=== PATIENT | female | born 1940 | race Caucasian/White ===

== ENCOUNTER 2016-05-11 01:57 | Inpatient (IN) | payer MEDICARE ==
[2016-05-11] VITALS (17 sets, daily range): BP systolic 92–124; BP diastolic 51–71
[~2016-05-11] VITALS: Ht 171.4 cm; Wt 66.0 kg
[~2016-05-11 01:57] MED LIST: AMOX1TAB12 PO; HYOS0.1216 PO; LEVO5DRO OU; MULT-1029 PO; NITR100C44 PO; PHEN200T27 PO
[2016-05-11] MEDS ORDERED: DILTIAZEM 25 MG/5 ML INJ (CARDIZEM) VIAL ONE (02:07)
[2016-05-11] MEDS ORDERED: DILTIAZEM 25 MG/5 ML INJ (CARDIZEM) VIAL IVP ONE ×2 (02:15→02:45)
[2016-05-11] MEDS ORDERED: DILTIAZEM 100 MG/VIAL (CARDIZEM) ADD-VANTAGE IV ONE (02:15)
[2016-05-11] MEDS ORDERED: DILTIAZEM DRIP 100 MG in SODIUM CHLORIDE (ADD-VANTAGE) 100 ML IV SCH (02:15)
[2016-05-11] MEDS ORDERED: SODIUM CHLORIDE (ADD-VANTAGE) 100 ML IV ONE (02:15)
--- NOTE | 2016-05-11 02:18 | ED Cardiac General ---
History of Present Illness General Chief Complaint: Cardiac/General Problems Stated Complaint: IRREG HEART BEAT Nursing Triage Note: PT STATES LAST FEW DAYS NOT FEELING WELL. TONIGHT IRREG HEART RATE. Source: patient Exam Limitations: no limitations History of Present Illness Time seen by provider: 02:00 Initial Comments Here with report of acute onset of irregular heartbeat with palpitations tonight. She states that it was fine when she went to bed but woke her up about an hour and a half ago. She called her son, who is a physician, and they presented to the ER. She does admit that she's had some sort of illness over the last couple of days and states that she's had some congestion and not feeling well. She states that she has felt hot and cold. Timing/Duration: 1-3 hours Severity: moderate Location: central Activities at Onset: none Prior CP/Workup: no prior chest pain NTG SL BELT LOOP CUTTER: No ASA po BELT LOOP CUTTER: No Associated Systoms: No Chest Pain, No Fever/Chills, No Nausea/Vomiting, No Shortness of Air, No Weakness Allergies and Home Medications Allergies Coded Allergies: No Known Drug Allergies (Unverified , 08/01/14) Home Medications Amox Tr/Potassium Clavulanate 1 Tab Tablet 1 TAB PO BID (Reported) Hyoscyamine Sulfate 0.125 Mg Tab #30 1-2 EACH PO Q4HR PRN MAY TAKE 1 OR 2 TABS BY MOUTH EVERY 4 HRS NEEDED FOR BLADDER PAIN/SPASMS. LAST DOSE, 1 TABLET, GIVEN AT 11:40 AM 08/02/14. Prescribed by: ELISABET MOYER on 08/02/14 1236 Levobunolol Hcl 15 Ml Drops 1 DROP OU DAILY (Reported) Mu-Vits-Min Th/Lycopene/Lutein 1 Each Tablet 1 EACH PO DAILY (Reported) Nitrofurantoin/Nitrofuran Mac 100 Mg Capsule #14 100 MG PO BID TAKE ONE CAPSULE BY MOUTH TWICE A DAY. USE ALL OF THIS MEDICATION PRESCRIBED Prescribed by: ELISABET MOYER on 08/02/14 1113 Phenazopyridine Hcl 200 Mg Tablet #30 1 EACH PO TID PRN MAY TAKE ONE TABLET UP TO 3 TIMES A DAY NEEDED FOR BLADDER PAIN/SPASMS. LAST DOSE GIVEN AT 11:40 AM 08/02/14. Prescribed by: ELISABET MOYER on 08/02/14 1236 Review of Systems Constitutional: see HPINo chills, No fever EENTM: See HPI Nose CongestionNo Throat Pain Respiratory: Denies Cough, Denies Shortness of Air Cardiovascular: Irregular Heart Rate Palpitations Gastrointestinal: No Symptoms ReportedDenies Nausea, Denies Vomiting Genitourinary: No Symptoms Reported Musculoskeletal: no symptoms reported Skin: no symptoms reported Psychiatric/Neurological: No Symptoms Reported Endocrine: No Symptoms Reported All Other Systems Reviewed Negative Unless Noted: Yes Past Pdnzonw-Fekukm-Pejaxo Hx Patient Social History Alcohol Use: Denies Use Recreational Drug Use: No Smoking Status: Never a Smoker 2nd Hand Smoke Exposure: No Recent Foreign Travel: No Contact w/Someone Who Travel: No Recent Infectious Disease Expo: No Recent Hopitalizations: No Immunizations Up To Date Tetanus Booster (TDap): Unknown Date of Pneumonia Vaccine: Jan 05, 2015 Date of Influenza Vaccine: Jan 06, 2016 Seasonal Allergies Seasonal Allergies: No Surgeries HX Surgeries: Yes (PARTIAL LEFT HIP REPLACEMENT, LEFT WRIST FX) Respiratory Hx Respiratory Disorders: No Cardiovascular Hx Cardiac Disorders: Yes Cardiac Disorders: Atrial Fibrillation Neurological Hx Neurological Disorders: No Reproductive System : No Genitourinary Hx Genitourinary Disorders: Yes Genitourinary Disorders: Kidney Stones Gastrointestinal Hx Gastrointestinal Disorders: No Musculoskeletal Hx Musculoskeletal Disorders: No Endocrine Hx Endocrine Disorders: No HEENT HX ENT Disorders: Yes HEENT Disorders: Glaucoma Loss of Vision: Denies Hearing Impairment: Denies Cancer Hx Cancer: No Psychosocial Hx Psychiatric Problems: No Integumentary HX Skin/Integumentary Disorder: No Blood Transfusions Hx Blood Disorders: No Reviewed Nursing Assessment Reviewed/Agree w Nursing PMH: Yes Family Medical History Significant Family History: No Pertinent Family Hx Physical Exam Vital Signs Vital Sign - Last 12Hours 05/11/16 02:04 Temp 98.8 Pulse 150 Resp 20 B/P 127/114 Pulse Ox 95 O2 Delivery Room Air Capillary Refill : Less Than 3 Seconds General Appearance: No Apparent Distress WD/WN HEENT: PERRL/EOMI Pharynx Normal Neck: Non Tender Supple Respiratory: Lungs Clear Normal Breath Sounds Cardiovascular: No Murmur Irregularly Irregular Tachycardia Gastrointestinal: Non Tender Soft Extremity: Normal Range of Motion Non Tender No Calf Tenderness Neurologic/Psychiatric: Alert Oriented x3 No Motor/Sensory Deficits Skin: Normal Color Warm/Dry Progress/Results/Core Measures Results/Orders Lab Results Laboratory Tests Test 05/11/16 02:13 Range/Units Activated Partial Thromboplast Time 29 24-35 SEC Alanine Aminotransferase (ALT/SGPT) 204 H 0-55 U/L Albumin 4.0 3.2-4.5 G/DL Alkaline Phosphatase 312 H 40-136 U/L Amylase Level 73 25-125 U/L Anion Gap 15 H 5-14 MMOL/L Aspartate Amino Transf (AST/SGOT) 232 H 5-34 U/L BUN/Creatinine Ratio 22 Band Neutrophils 0 % Basophils # (Auto) 0.1 0.0-0.1 10^3/uL Basophils % (Manual) 0 % Basophils (%) (Auto) 0 0-10 % Blood Urea Nitrogen 16 7-18 MG/DL Calcium Level 8.4 L 8.5-10.1 MG/DL Carbon Dioxide Level 18 L 21-32 MMOL/L Chloride Level 107 98-107 MMOL/L Creatinine 0.73 0.60-1.30 MG/DL Crenated Cell MODERATE D-Dimer 1.00 H 0.00-0.49 UG/ML Eosinophils # (Auto) 0.0 0.0-0.3 10^3/uL Eosinophils % (Manual) 0 % Eosinophils (%) (Auto) 0 0-10 % Estimat Glomerular Filtration Rate > 60 Glucose Level 149 H 70-105 MG/DL Hematocrit 42 35-52 % Hemoglobin 13.7 11.5-16.0 G/DL INR Comment 1.0 0.8-1.4 Lipase 68 8-78 U/L Lymphocytes # (Auto) 17.6 H 1.0-4.0 X 10^3 Lymphocytes % (Manual) 68 % Lymphocytes (%) (Auto) 78 H 12-44 % Magnesium Level 1.8 1.8-2.4 MG/DL Mean Corpuscular Hemoglobin 31 25-34 PG Mean Corpuscular Hemoglobin Concent 33 32-36 G/DL Mean Corpuscular Volume 94 80-99 FL Mean Platelet Volume 10.5 H 7.4-10.4 FL Monocytes # (Auto) 1.4 H 0.0-1.0 X 10^3 Monocytes % (Manual) 3 % Monocytes (%) (Auto) 6 0-12 % Myoglobin 35.2 10.0-92.0 NG/ML Neutrophils # (Auto) 3.5 1.8-7.8 X 10^3 Neutrophils % (Manual) 17 % Neutrophils (%) (Auto) 16 L 42-75 % Platelet Count 152 130-400 10^3/uL Potassium Level 3.7 3.6-5.0 MMOL/L Prothrombin Time 12.7 12.2-14.7 SEC Reactive Lymphocytes 12 % Red Blood Count 4.42 4.35-5.85 10^6/uL Red Cell Distribution Width 13.9 10.0-14.5 % Sodium Level 140 135-145 MMOL/L TSH Jakin Testing 0.63 0.35-4.94 UIU/ML Total Bilirubin 0.3 0.1-1.0 MG/DL Total Protein 6.2 L 6.4-8.2 G/DL Toxic Granulation 1+ Troponin I < 0.30 <0.30 NG/ML White Blood Count 22.5 H 4.3-11.0 10^3/uL Micro Results Microbiology 05/11/16 Influenza Types A,B Antigen ([facility]) - Final, Complete My Orders Orders-BHAVYA TOM MD Diltiazem Injection (Cardizem Injection) (05/11/16 02:07) Sodium Chloride (Ad... W/Diltiazem Drip (05/11/16 02:15) Diltiazem Injection (Cardizem Injection) (05/11/16 02:15) Diltiazem Drip (Cardizem Drip) (05/11/16 02:15) Cbc With Automated Diff (05/11/16 02:16) Magnesium (05/11/16 02:16) Chest 1 View, Ap/Pa Only (05/11/16 02:16) Ekg Tracing (05/11/16 02:16) Cardiac Profile 1 (05/11/16 02:16) Comprehensive Metabolic Panel (05/11/16 02:16) Myoglobin Serum (05/11/16 02:16) Protime With Inr (05/11/16 02:16) Partial Thromboplastin Time (05/11/16 02:16) O2 (05/11/16 02:16) Monitor-Rhythm Ecg Trace Only (05/11/16 02:16) Lipid Panel (05/12/16 06:00) Aspirin Chewable Tablet (Baby Aspirin Ch (05/11/16 02:30) Saline Lock/Iv-Start (05/11/16 02:16) Fibrin Degradation Products (05/11/16 02:16) Sodium Chloride (Add-[place]) (Ns (Add-V (05/11/16 02:15) Thyroid Analyzer (05/11/16 02:18) Ns Iv 500 Ml (Sodium Chloride 0.9%) (05/11/16 02:22) Manual Differential (05/11/16 02:13) Diltiazem Injection (Cardizem Injection) (05/11/16 02:45) Influenza A And B Antigens (05/11/16 02:44) Ct Abdomen/Pelvis W (05/11/16 02:54) Saline Lock/Iv-Start (05/11/16 02:55) Heparin Drip 85954 Unit/500ml (Heparin (05/11/16 02:55) Heparin (Bolus Per Protocol) (Heparin (B (05/11/16 02:55) Medications Given in ED Current Medications Medications Dose Ordered Sig/Juan F Route Start Time Stop Time Status Last Admin Dose Admin Aspirin 324 mg 324 mg ONCE ONCE PO 05/11/16 02:30 05/11/16 02:31 DC 05/11/16 02:21 324 MG Diltiazem HCl 10 mg ONCE ONCE IVP 05/11/16 02:15 05/11/16 02:17 DC 05/11/16 02:19 10 MG Diltiazem HCl 10 mg 10 mg ONCE ONCE IVP 05/11/16 02:45 05/11/16 02:46 DC 05/11/16 02:45 10 MG Heparin Sodium (Porcine) HEPARIN BOLUS ACS PROTOC... 0255 ONCE IV 05/11/16 02:55 05/11/16 02:57 DC 05/11/16 03:43 4,082 UNIT Heparin Sodium/ Dextrose 500 ml @ 0 mls/hr Q0M ONCE IV 05/11/16 02:55 05/11/16 02:57 DC 05/11/16 03:48 16 MLS/HR Sodium Chloride 500 ml @ 0 mls/hr Q0M ONCE IV 05/11/16 02:22 05/11/16 02:23 DC 05/11/16 02:29 0 MLS/HR Vital Signs/I&O Vital Sign - Last 12Hours 05/11/16 05/11/16 02:04 02:20 Temp 98.8 98.8 Pulse 150 150 Resp 20 20 B/P 127/114 127/114 Pulse Ox 95 95 O2 Delivery Room Air Blood Pressure Mean: 118 Progress Note : Progress Note Seen and evaluated. IV, labs, EKG and chest x-ray ordered. Cardizem 10 mg IV bolus. Cardizem drip at 15 mg per hour initiated. Aspirin 324 mg by mouth given. Normal saline 500 mL bolus ordered. Monitor patient. 0250: Patient has abnormal findings on labs including elevated white count with lymphocyte predominance and elevated liver enzymes and alkaline phosphatase with low calcium. This is all concerning for intra-abdominal pathology. This was discussed with the patient and family. CT abdomen and pelvis ordered. We will initiate heparin drip due to persistent atrial fibrillation. Second IV site established. Patient is influenza positive. Tamiflu initiated. Case discussed with Dr. PINEDA at 0342. He accepts patient for admission, inpatient status. Case discussed with Dr. Shine at 0353. He accepts patient in consult. He recommends one dose of digoxin 0.25 mg IV times one now due to heart rate variations. CT pending. Dr. PINEDA will follow-up on her results. ECG Initial ECG Impression Date: May 11, 2016 Initial ECG Impression Time: 02:06 Initial ECG Rate: 170 Initial ECG Rhythm: A Fib/Flutter Initial ECG Comparisson: No Previous ECG Available Comment Atrial fibrillation with rapid ventricular rate. Normal axis. No evidence of ST elevation [place]. Question of left ventricular hypertrophy. No previous available for comparison. Interpreted by me. Diagnostic Imaging Diagonstic Imaging: Xray Plain Films/CT/US/NM/MRI: chest Comments No acute findings Reviewed: Reviewed by Me Diagonstic Imaging: CT Plain Films/CT/US/NM/MRI: abdomen, pelvis Comments Examination is limited by motion artifact artifact from a left hip prosthesis. Nonspecific gallbladder wall thickening enhancement. No calcified gallstones or biliary dilation. Right upper quadrant ultrasound may be considered for further characterization as clinically indicated. Small amount of nonspecific pelvic free fluid. No evidence of bowel instruction, free air or acute appendicitis. Incidental findings of small hiatal hernia, splenomegaly, prominent pancreatic duct and moderate colonic stool suggestive of constipation. Reviewed: [facility], Reviewed by Me Departure Communication Time/Spoke to Admitting Phy: 03:42 Time/Spoke to Consulting Physi: 03:53 Impression Impression: Primary Impression: Atrial fibrillation with rapid ventricular response Additional Impressions: Influenza A Elevated liver enzymes Disposition: ADMITTED INPATIENT Condition: Stable Decision to Admit Reason: Admit from ER (General) Decision to Admit/Date: May 11, 2016 Time/Decision to Admit Time: 02:58 Departure-Patient Inst. Referrals: RAYNA GRUBBS MD (PCP) Primary Care Physician BHAVYA TOM MD May 11, 2016 02:18
[2016-05-11] MEDS ORDERED: NS IV 500 ML 500 ML IV ONE (02:22)
[2016-05-11 02:26] LABS: BASOPHILS # (AUTO) 0.1 10^3/uL (0.0-0.1); BASOPHILS % (AUTO) 0 % (0-10); EOSINOPHILS % (AUTO) 0 % (0-10); LYMPHOCYTES # (AUTO) 17.6 X 10^3 (1.0-4.0); LYMPHOCYTES % (AUTO) 78 % (12-44); MEAN CORPUSCULAR HEMOGLOBIN 31 PG (25-34); MEAN CORPUSCULAR HGB CONC 33 G/DL (32-36); MEAN CORPUSCULAR VOLUME 94 FL (80-99); MEAN PLATELET VOLUME 10.5 FL (7.4-10.4); MONOCYTES # (AUTO) 1.4 X 10^3 (0.0-1.0); MONOCYTES % (AUTO) 6 % (0-12); NEUTROPHILS # (AUTO) 3.5 X 10^3 (1.8-7.8); NEUTROPHILS % (AUTO) 16 % (42-75); PLATELET COUNT 152 10^3/uL (130-400); RED BLOOD COUNT 4.42 10^6/uL (4.35-5.85); RED CELL DISTRIBUTION WIDTH 13.9 % (10.0-14.5); WHITE BLOOD COUNT 22.5 10^3/uL (4.3-11.0)
[2016-05-11 02:29] LABS: PROTHROMBIN TIME PATIENT 12.7 SEC (12.2-14.7)
[2016-05-11] MEDS ORDERED: ASPIRIN 81 MG CHEW (CHILDREN'S ASA) PO ONE (02:30)
[2016-05-11 02:44] LABS: ALANINE AMINOTRANSFERASE 204 U/L (0-55); ANION GAP 15 MMOL/L (5-14); ASPARTATE AMINO TRANSFERASE 232 U/L (5-34); BILIRUBIN,TOTAL 0.3 MG/DL (0.1-1.0); BLOOD UREA NITROGEN 16 MG/DL (7-18); BUN/CREATININE RATIO 22; CALCIUM 8.4 MG/DL (8.5-10.1); CARBON DIOXIDE 18 MMOL/L (21-32); CHLORIDE 107 MMOL/L (98-107); CREATININE SERUM 0.73 MG/DL (0.60-1.30); GFR ESTIMATED > 60; GLUCOSE 149 MG/DL (70-105); MAGNESIUM 1.8 MG/DL (1.8-2.4); POTASSIUM 3.7 MMOL/L (3.6-5.0); SODIUM 140 MMOL/L (135-145); TOTAL PROTEIN 6.2 G/DL (6.4-8.2)
[2016-05-11] MEDS ORDERED: HEParin DRIP 25000 UNIT/500ML 500 ML IV ONE (02:55)
[2016-05-11] MEDS ORDERED: HEParin 1000 UNIT/ML (10ML VIAL) FOR BOLUS IV ONE (02:55)
[2016-05-11 02:56] LABS: BAND NEUTROPHILS 0 %; BASOPHILS % (MANUAL) 0 %; EOSINOPHILS % (MANUAL) 0 %; LYMPHOCYTES % (MANUAL) 68 %; NEUTROPHILS % (MANUAL) 17 %; REACTIVE LYMPHOCYTES 12 %
[2016-05-11 02:57] LABS: CRENATED RBC MODERATE
[2016-05-11 03:19] LABS: MYOGLOBIN SERUM 35.2 NG/ML (10.0-92.0)
[2016-05-11] MEDS ORDERED: NS 100 ML (IVPB) BAG IV ONE (03:30)
[2016-05-11] MEDS ORDERED: IOHEXOL 350 MG/ML 100 ML (OMNIPAQUE 350) VIAL IV ONE (03:30)
[2016-05-11 03:57] LABS: AMYLASE 73 U/L (25-125); LIPASE 68 U/L (8-78)
[2016-05-11] MEDS ORDERED: RX-OSELTAMIVIR 75 MG (TAMIFLU) BOX OF 10 PO STA (03:57)
[2016-05-11] MEDS ORDERED: DIGOXIN 0.25 MG/ML (LANOXIN) 2 ML AMP IV ONE (04:00)
[2016-05-11] MEDS: POTASSIUM CL 10MEQ/50ML IVPB 50 ML IV SCH ×2 (05:29→06:01)
[2016-05-11] MEDS: KCL 20 MEQ TAB (K-DUR) PO SCH ×2 (05:30→06:02)
[2016-05-11] MEDS: MAGNESIUM 1 GM/100 ML IVPB 100 ML IV SCH ×2 (05:30→06:01)
[2016-05-11] MEDS ORDERED: DILTIAZEM DRIP 100 MG/NS 100 ML IV SCH ×2 (06:15)
[2016-05-11] MEDS ORDERED: NS IV 1000 ML 1,000 ML IV SCH (06:15)
[2016-05-11] MEDS ORDERED: NITROGLYCERIN SUBLINGUAL 0.4 MG TAB (NITROSTAT) SL PRN (06:15)
[2016-05-11] MEDS ORDERED: CATHETER FLUSH 10 ML SYR IV PRN (06:15)
--- NOTE | 2016-05-11 07:03 | Diagnostic Imaging Report ---
Clinical indication: Patient states last few days not feeling well. Tonight with irregular heart rate. Exam: Portable chest x-ray upright view. Comparisons: None. Findings: Lungs/pleura: Suspected mild bibasilar atelectasis or scarring. Otherwise, lungs are clear. There is no pneumothorax. There is no pleural effusion. Mediastinum: Unremarkable. Pulmonary vasculature: Unremarkable. Heart: Upper limits of normal heart size for portable projection. Bones/extrathoracic soft tissue: Unremarkable. Impression: Suspected mild bibasilar atelectasis or scarring. Otherwise, there is no radiographic evidence of acute cardiopulmonary process. Dictated by: Dictated on workstation # [id number]
--- NOTE | 2016-05-11 08:03 | Diagnostic Imaging Report ---
PROCEDURE: CT abdomen and pelvis with contrast. TECHNIQUE: Multiple contiguous axial images were obtained through the abdomen and pelvis after administration of intravenous contrast. INDICATION: Generalized abdominal pain. COMPARISON: 07/25/14. FINDINGS: The lung bases are clear. Questionable gallbladder wall thickening is present versus normal enhancement. Consider ultrasound. No obvious cholelithiasis is seen. There is no intra-or extrahepatic biliary duct dilatation. The pancreatic duct is prominent without obvious mass or choledocholithiasis. Otherwise, solid organs and vascular structures are unremarkable. There was no free air. There is moderate constipation without obstruction. The course and caliber of the visualized small bowel is normal. There is trace free fluid in the cul-de-sac. No abscess identified. There is no free air. Osseous structures are age-appropriate. Both ureters and urinary bladder are unremarkable. IMPRESSION: 1. Constipation without obstruction. 2. Nonspecific gallbladder wall enhancement with slight thickening, probably normal variant. Consider ultrasound to exclude cholecystitis. 3. Likely benign prominent pancreatic duct without mass or obstructing lesion. 4. Nonspecific trace free fluid in the cul-de-sac without abscess. Dictated by: Dictated on workstation # [id number]
[2016-05-11 08:44] LABS: MYOGLOBIN SERUM 44.4 NG/ML (10.0-92.0)
[2016-05-11] MEDS ORDERED: DILTIAZEM 180 MG (CARDIZEM CD) CAP PO SCH (09:00)
[2016-05-11] MEDS ORDERED: OSELTAMIVIR 75 MG (TAMIFLU) BOX OF 10 PO SCH ×3 (09:00)
[2016-05-11] MEDS ORDERED: APIXABAN 5 MG (ELIQUIS) TABLET PO SCH (09:00)
[2016-05-11] MEDS ORDERED: ASPIRIN E.C. 325 MG (ECOTRIN) TABLET PO SCH ×2 (09:00→12:00)
--- NOTE | 2016-05-11 12:33 | Short Stay Summary-Hospitalist ---
HPI History of Present Illness: HPI/Chief Complaint The patient is a 75-year-old white female known to me for many years. She reports that she was awakened in the metrology manager hours with the sense of palpitations. She presented to the emergency room in the company of her son who is a physician and was found to be in atrial fibrillation with a rapid ventricular response. She apparently has not been in atrial fibrillation as a rule, however, her son reports that several years ago while they were on a family outing and a cruise in the [place] she fell and fractured her hip. She was confined to bed and the cabin for a couple of days until they reached port and was found to be in atrial fibrillation at that time. That resolved with hospitalization. Source: patient Exam Limitations: no limitations Date Seen 05/11/16 Attending Physician Jordin Pineda MD PCP Adele Esparza MD Referring Physician Date of Admission May 11, 2016 at 02:55 Home Medications & Allergies Home Medications Reviewed patient Home Medication Reconciliation Form Allergies Coded Allergies: No Known Drug Allergies (Unverified , 08/01/14) Past Jrmogoz-Odlqax-Bendeq Hx Patient Social History Alcohol Use: Denies Use Recreational Drug Use: No Smoking Status: Never a Smoker 2nd Hand Smoke Exposure: No Physical Abuse Screen: No Sexual Abuse: No Recent Foreign Travel: No Contact w/other who traveled: No Recent Hopitalizations: No Recent Infectious Disease Expo: No Immunizations Up To Date Tetanus Booster (TDap): Unknown Date of Pneumonia Vaccine: Jan 05, 2015 Date of Influenza Vaccine: Jan 09, 2016 Seasonal Allergies Seasonal Allergies: No Surgeries HX Surgeries: Yes (PARTIAL LEFT HIP REPLACEMENT, LEFT WRIST FX) Respiratory Hx Respiratory Disorders: No Cardiovascular Hx Cardiovascular Disorders: Yes Cardiac Disorders: Atrial Fibrillation Neurological Hx Neurological Disorders: No Reproductive System : No Genitourinary Hx Genitourinary Disorders: Yes Genitourinary Disorders: Kidney Stones Gastrointestinal Hx Gastrointestinal Disorders: No Musculoskeletal Hx Musculoskeletal Disorders: No Endocrine Hx Endocrine Disorders: No HEENT HX ENT Disorders: Yes HEENT Disorders: Glaucoma Loss of Vision: Denies Hearing Impairment: Denies Cancer Hx Cancer: No Psychosocial Hx Psychiatric Problems: No Integumentary HX Skin/Integumentary Disorder: No Blood Transfusions Hx Blood Disorders: No Reviewed Nursing Assessment Reviewed/Agree w Nursing PMH: Yes Family Medical History Significant Family History: No Pertinent Family Hx Review of Systems Constitutional: see HPI EENTM: no symptoms reported Cardiovascular: palpitations Gastrointestinal: no symptoms reported Genitourinary: no symptoms reported Musculoskeletal: no symptoms reported Skin: no symptoms reported Psychiatric/Neurological: No Symptoms Reported Physical Exam Physical Exam Vital Signs Capillary Refill : Less Than 3 Seconds General Appearance: Anxious Eyes: Bilateral Eye Normal Inspection HEENT: Normal ENT Inspection Neck: Normal Inspection Respiratory: Chest Non Tender Lungs Clear Normal Breath Sounds No Accessory Muscle Use No Respiratory Distress Cardiovascular: Regular Rate, Rhythm No Gallop No JVD No Murmur Gastrointestinal: Normal Bowel Sounds No Organomegaly No Pulsatile Mass Non Tender Soft Back: Normal Inspection No CVA Tenderness No Vertebral Tenderness Extremity: Normal Capillary Refill Normal Inspection Normal Range of Motion Non Tender No Calf Tenderness No Pedal Edema Neurologic/Psychiatric: Alert Oriented x3 No Motor/Sensory Deficits Normal Mood/Affect Skin: Normal Color Warm/Dry Lymphatic: No Adenopathy Results Results/Procedures Lab Short Stay Diagnosis Discharge Diagnosis-Short Stay Admission Diagnosis 1.atrial fibrillation with rapid ventricular response. 2.modest elevation of liver enzymes etiology unknown Final Discharge Diagnosis 1.atrial fibrillation with rapid ventricular response now controlled and in sinus rhythm. 2.modest elevation of liver enzymes etiology unknown Conclusion Plan Discharge with outpatient follow-up by Dr. Infante. I discussed the liver enzymes and a shoe with the patient's physician Dr. Adele Esparza and she will be seen early in the week following her discharge for repeat studies. There were no symptoms referable to the liver or gallbladder. Clinical Quality Measures AMI/AHF: ASA po Prior to arrival: No DVT/VTE Risk/Contraindication: Risk Factor Score Per Nursin RFS Level Per Nursing on Admit: 2=Moderate JORDIN PINEDA MD May 11, 2016 12:33
--- NOTE | 2016-05-11 12:44 | Consultation-Cardiology ---
HPI-Cardiology Cardiology Consultation: Date of Consultation 05/11/16 Date of Admission 05/10/16 Attending Physician Jordin Cooper MD Admitting Physician Adele Esparza MD Consulting Physician ABRAM JACOB MD, FACP, FACC, FSCAI, CCDS HPI: Chief Complaint: Palpitations 75 yo woman who felt palpitations consisting of rapid irreg heartbeat yesterday and came to the ER. The day before she came in she had chills and rigors and gen malaise. No syncope or chest pain or leg swelling Review of Systems-Cardiology Review of Systems Constitutional: malaise tiredness Eyes: No vision change Ears/Nose/Throat: No ear discharge, No nasal drainage, No recent hearing loss Respiratory: As described under HPI Cardiovascular: As described under HPI Gastrointestinal: No constipation, No diarrhea, No nausea, No vomiting Genitourinary: No dysuria, No hematuria, No urine frequency changes Musculoskeletal: joint pain (chronic) Skin: No rash, No ulcerations Psychiatric/Neurological: No focal weakness, No seizure, No syncope Hematologic: bleeding abnormalities All Other Systems Reviewed Negative Unless Noted: Yes MZZ-Wkybvz-Kcjdnz Hx Patient Social History Alcohol Use: Denies Use Recreational Drug Use: No Smoking Status: Never a Smoker 2nd Hand Smoke Exposure: No Recent Foreign Travel: No Recent Infectious Disease Expo: No Physical Abuse Screen: No Sexual Abuse: No Immunizations Up To Date Tetanus Booster (TDap): Unknown Date of Pneumonia Vaccine: Jan 05, 2015 Date of Influenza Vaccine: Jan 09, 2016 Past Medical History PMH As described under Assessment. Family Medical History Family Medical History: Father at age 50, cause unknown Allergies and Home Medications Allergies Coded Allergies: No Known Drug Allergies (Unverified , 08/01/14) Home Medications Amox Tr/Potassium Clavulanate 1 Tab Tablet 1 TAB PO BID (Reported) Hyoscyamine Sulfate 0.125 Mg Tab #30 1-2 EACH PO Q4HR PRN MAY TAKE 1 OR 2 TABS BY MOUTH EVERY 4 HRS NEEDED FOR BLADDER PAIN/SPASMS. LAST DOSE, 1 TABLET, GIVEN AT 11:40 AM 08/02/14. Prescribed by: ELISABET MOYER on 08/02/14 1236 Levobunolol Hcl 15 Ml Drops 1 DROP OU DAILY (Reported) Mu-Vits-Min Th/Lycopene/Lutein 1 Each Tablet 1 EACH PO DAILY (Reported) Nitrofurantoin/Nitrofuran Mac 100 Mg Capsule #14 100 MG PO BID TAKE ONE CAPSULE BY MOUTH TWICE A DAY. USE ALL OF THIS MEDICATION PRESCRIBED Prescribed by: ELISABET MOYER on 08/02/14 1113 Phenazopyridine Hcl 200 Mg Tablet #30 1 EACH PO TID PRN MAY TAKE ONE TABLET UP TO 3 TIMES A DAY NEEDED FOR BLADDER PAIN/SPASMS. LAST DOSE GIVEN AT 11:40 AM 08/02/14. Prescribed by: ELISABET MOYER on 08/02/14 1236 Physical Exam-Cardiology Physical Exam Vital Signs/I&O Vital Sign - Last 12Hours 05/11/16 05/11/16 05/11/16 05/11/16 02:04 02:20 04:45 04:45 Temp 98.8 98.8 98.5 Pulse 150 150 63 68 Resp 20 20 18 16 B/P 127/114 127/114 96/70 Pulse Ox 95 95 94 95 O2 Delivery Room Air Room Air 05/11/16 05/11/16 05/11/16 05/11/16 04:59 05:00 05:00 05:15 Temp 98.8 Pulse 69 64 69 63 Resp 18 16 16 B/P 96/70 97/71 101/57 Pulse Ox 94 92 93 O2 Delivery Room Air Room Air 05/11/16 05/11/16 05/11/16 05/11/16 05:30 05:45 06:00 06:15 Pulse 62 62 62 71 Resp 16 16 16 15 B/P 101/59 103/56 102/57 114/60 Pulse Ox 93 94 93 95 O2 Delivery Room Air Room Air Room Air Room Air 05/11/16 05/11/16 05/11/16 05/11/16 06:30 06:45 07:00 07:00 Pulse 64 62 64 64 Resp 15 15 24 B/P 109/58 106/57 108/63 Pulse Ox 93 93 96 O2 Delivery Room Air Room Air Room Air 05/11/16 05/11/16 05/11/16 05/11/16 08:00 09:00 10:00 11:00 Pulse 66 66 72 67 Resp 15 7 16 18 B/P 92/65 103/63 107/58 110/56 Pulse Ox 96 94 92 95 O2 Delivery Room Air Room Air Room Air Room Air 05/11/16 12:00 Temp 99.5 Pulse 74 Resp 20 B/P 101/62 Pulse Ox 96 O2 Delivery Room Air Capillary Refill : Less Than 3 Seconds Constitutional: AAO x 3 well-developed other (thin appearing) HEENT: PERRL EOMI hearing is well preserved Neck: No carotid bruit, carotid pulses are 2 + bilaterally with good upstrokes Respiratory: No accessory muscle use, lungs clear to percussion lungs clear to auscultation Cardiovascular: regular rate-rhythm S1 and S2 systolic murmur (faint ROBY) Gastrointestinal: No tender, No guarding, No rebound, audible bowel sounds Extremities: No clubbing, No cyanosis, No significant edema Neurologic/Psychiatric: oriented x 3 grossly intact power is 5/5 both on sides Skin: No rash on exposed areas, No ulcerations on exposed areas Data Review Labs Laboratory Tests 05/11/16 02:13: Activated Partial Thromboplast Time 29, Alanine Aminotransferase (ALT/SGPT) 204H , Albumin 4.0, Alkaline Phosphatase 312H, Amylase Level 73, Anion Gap 15H, Aspartate Amino Transf (AST/SGOT) 232H, BUN/Creatinine Ratio 22, Band Neutrophils 0, Basophils # (Auto) 0.1, Basophils % (Manual) 0, Basophils (%) ( Auto) 0, Blood Urea Nitrogen 16, Calcium Level 8.4L, Carbon Dioxide Level 18L, Chloride Level 107, Creatinine 0.73, Crenated Cell MODERATE, D-Dimer 1.00H, Eosinophils # (Auto) 0.0, Eosinophils % (Manual) 0, Eosinophils (%) (Auto) 0, Estimat Glomerular Filtration Rate > 60, Glucose Level 149H, Hematocrit 42, Hemoglobin 13.7, INR Comment 1.0, Lipase 68, Lymphocytes # (Auto) 17.6H, Lymphocytes % (Manual) 68, Lymphocytes (%) (Auto) 78H, Magnesium Level 1.8, Mean Corpuscular Hemoglobin 31, Mean Corpuscular Hemoglobin Concent 33, Mean Corpuscular Volume 94, Mean Platelet Volume 10.5H, Monocytes # (Auto) 1.4H, Monocytes % (Manual) 3, Monocytes (%) (Auto) 6, Myoglobin 35.2, Neutrophils # ( Auto) 3.5, Neutrophils % (Manual) 17, Neutrophils (%) (Auto) 16L, Platelet Count 152, Potassium Level 3.7, Prothrombin Time 12.7, Reactive Lymphocytes 12, Red Blood Count 4.42, Red Cell Distribution Width 13.9, Sodium Level 140, TSH Mcdermitt Testing 0.63, Total Bilirubin 0.3, Total Protein 6.2L, Toxic Granulation 1+, Troponin I < 0.30, White Blood Count 22.5H 05/11/16 08:15: Myoglobin 44.4, Total Creatine Kinase 65 Microbiology 05/11/16 Influenza Types A,B Antigen (LORENA) - Final, Complete Laboratory Tests 05/11/16 02:13 A/P-Cardiology Assessment/Admission Diagnosis * PAF, first episode in 2013 * S/p L hip replacement * Glaucoma * Diagnosed with flu during this hosp, managed by Dr Cooper Discussion and Recomendations * Apixaban for stroke prophylaxis * Long-acting dilt for rate control * Wishes to go home * Have advised outpatient f/u * I spoke in detail with Dr Cooper Clinical Quality Measures AMI/AHF: ASA po Prior to arrival: No DVT/VTE Risk/Contraindication: Risk Factor Score Per Nursin RFS Level Per Nursing on Admit: 2=Moderate ABRAM JACOB MD FACP FAC CCDS May 11, 2016 12:44
[2016-05-11] MEDS ORDERED: CATHETER FLUSH 10 ML SYR IV SCH (14:00)
[2016-05-11] MEDS ORDERED: APIX5TAB PO (14:06)
[2016-05-11] MEDS ORDERED: DILT180C67 PO (14:06)
== END 2016-05-11 14:55 | disposition home or self-care (01) | DRG 310 ==
LOC: EDUNIT# 01:57 → ER 01:59 → ICU 02:55
PROVIDERS: ADMIT Internal Medicine; ATTEND Internal Medicine
DX: I48.0 Paroxysmal atrial fibrillation (principal); J11.1 Influenza due to unidentified influenza virus with other respiratory manifestations; H40.9 Unspecified glaucoma
CPT/HCPCS: 36415; 71010; 74177; 80053; 82150; 82550; 83690; 83735; 83874; 84443; 84484; 85007; 85027; 85379; 85610; 85730; 87081; 87804; 93005; 93041; 96361; 96374; 96375

== ENCOUNTER 2022-02-15 00:32 | Emergency (ER) | payer MEDICARE, BC ==
[~2022-02-15] VITALS: Ht 170.1 cm; Wt 61.2 kg
[~2022-02-15 00:32] MED LIST changes: +APIX5TAB PO; +DILT180C67 PO
[2022-02-15 00:38] VITALS: BP 145/83
[2022-02-15] MEDS ORDERED: ASPIRIN 81 MG CHEW (CHILDREN'S ASA) PO ONE (00:45)
[2022-02-15] MEDS ORDERED: NITROGLYCERIN 0.4 MG SL TABS BTL 25'S SL PRN (00:45)
[2022-02-15 01:00] LABS: BASOPHILS # (AUTO) 0.1 10^3/uL (0.0-0.1); BASOPHILS % (AUTO) 1 % (0-10); EOSINOPHILS # (AUTO) 0.5 10^3/uL (0.0-0.3); EOSINOPHILS % (AUTO) 2 % (0-10); HEMATOCRIT 44 % (35-52); HEMOGLOBIN 14.1 g/dL (11.5-16.0); LYMPHOCYTES # (AUTO) 18.8 10^3/uL (1.0-4.0); LYMPHOCYTES % (AUTO) 79 % (12-44); MEAN CORPUSCULAR HEMOGLOBIN 31 pg (25-34); MEAN CORPUSCULAR HGB CONC 32 g/dL (32-36); MEAN CORPUSCULAR VOLUME 97 fL (80-99); MEAN PLATELET VOLUME 9.5 fL (9.0-12.2); MONOCYTES # (AUTO) 0.9 10^3/uL (0.0-1.0); MONOCYTES % (AUTO) 4 % (0-12); NEUTROPHILS # (AUTO) 3.5 10^3/uL (1.8-7.8); NEUTROPHILS % (AUTO) 15 % (42-75); PLATELET COUNT 204 10^3/uL (130-400); WHITE BLOOD COUNT 23.9 10^3/uL (4.3-11.0)
[2022-02-15] MEDS ORDERED: dilTIAZem DRIP PRE-MIX 125 ML IV SCH (01:00)
[2022-02-15] MEDS ORDERED: ENOXAPARIN 80 MG/0.8 ML (LOVENOX) SYR SC ONE (01:00)
[2022-02-15 01:09] LABS: INR 0.9 (0.8-1.4); PROTHROMBIN TIME PATIENT 12.9 SEC (12.2-14.7)
[2022-02-15 01:13] LABS: ALBUMIN 4.4 GM/DL (3.2-4.5); POTASSIUM 3.6 MMOL/L (3.6-5.0)
[2022-02-15 01:15] LABS: CALCIUM 9.6 MG/DL (8.5-10.1)
[2022-02-15 01:16] LABS: TOTAL PROTEIN 7.2 GM/DL (6.4-8.2)
[2022-02-15 01:18] LABS: BILIRUBIN,TOTAL 0.4 MG/DL (0.1-1.0)
[2022-02-15 01:19] LABS: CREATININE SERUM 0.78 MG/DL (0.60-1.30)
[2022-02-15 01:30] LABS: CREATINE KINASE MB 3.9 NG/ML (<6.6)
[2022-02-15 01:38] LABS: ATYPICAL LYMPHOCYTES 4 %; EOSINOPHILS % (MANUAL) 3 %; LYMPHOCYTES % (MANUAL) 70 %; MONOCYTES % (MANUAL) 5 %; NEUTROPHILS % (MANUAL) 18 %; RBC MORPH NORMAL
--- NOTE | 2022-02-15 01:52 | ED Cardiac General ---
History of Present Illness General Chief Complaint: Chest Pain Stated Complaint: CHEST PAIN Nursing Triage Note: PT TO RM 6 WITH CC OF CHEST PRESSURE SINCE 2144. PT STATES PRESSURE GOES INTO UPPER CHEST, NECK AND EARS. PT REPORTS HEART FELT OUT OF RHYTHM. DENIES SOB AND SWEATING. 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 SHE STATES THAT IS GONE NOW AND SHE "FEELS PERFECTLY FINE NOW" AND IS READY TO GO HOME SOON SHE ARRIVES -SHE STATES HER HEART FELT LIKE IT WAS OUT OF RHYTHM, BUT THAT HAS ALSO RESOLVED AND NO LONGER HAS THAT SENSATION OF FAST OR IRREGULAR HEART BEAT. NO SHORTNESS OF BREATH NO SWEATS NO DIZZINESS OR SYNCOPE NO NAUSEA/VOMITING NO ABDOMINAL PAIN NO BACK PAIN NO SWELLING IN LEGS/ FEET OR PAIN IN CALVES NO FEVER OR RECENT ILLNESS NO HISTORY OF CHEST PAIN SEVERAL YEARS AGO, SHE HAD AN EPISODE OF ATRIAL FIBRILLATION WHILE HOSPITALIZED FOR A HIP FRACTURE SHE ALSO HAD IT A COUPLE OF YEARS LATER WHEN SHE WAS SICK WITH THE FLU BOTH OF THOSE EPISODES RESOLVED ON THEIR OWN. SHE SAW A SURGICAL TECHNOLOGIST ONE TIME WITH THOSE EVENTS. HAS NOT SEEN A SURGICAL TECHNOLOGIST AT ANY OTHER TIME. PT STATES SHE DOES NOT TAKE ANY MEDICATIONS OTHER THAN EYE DROPS. SHE HAS HAD COVID-19 VACCINE X 3. PT LIVES ALONE, SON LIVES NEARBY [facility] po UROLOGY PHYSICIAN: No PCP: WAS DR. GRUBBS UNTIL SHE LEFT THE PRACTICE. IS PLANNING ON ESTABLISHING WITH DR. JACKMAN. Allergies and Home Medications Allergies Coded Allergies: No Known Drug Allergies (Unverified , 08/01/14) Patient Home Medication List Amox Tr/Potassium Clavulanate (Amox Tr-K Clv 875-125 Mg Tab) 1 Tab Tablet, 1 TAB PO BID, (Reported) Entered as Reported by: MUKUND REESE on 08/01/14 1646 Apixaban (Eliquis) 5 Mg Tablet, 5 MG PO BID Prescribed by: PATRICIA DOUGLAS on 05/11/16 1406 Diltiazem HCl (Cardizem Cd) 180 Mg Cap.er.24h, 180 MG PO DAILY Prescribed by: PATRICIA ODUGLAS on 05/11/16 1406 Hyoscyamine Sulfate (Levsin 0.125 Mg Tab) 0.125 Mg Tab, 1-2 EACH PO Q4HR PRN Prescribed by: ELISABET MOYER on 08/02/14 1236 Levobunolol Hcl (Levobunolol Hcl) 15 Ml Drops, 1 DROP OU DAILY, (Reported) Entered as Reported by: MUKUND REESE on 08/01/14 1646 Mu-Vits-Min Th/Lycopene/Lutein (Centrum Silver Tablet) 1 Each Tablet, 1 EACH PO DAILY, (Reported) Entered as Reported by: MUKUND REESE on 08/01/14 1646 Nitrofurantoin/Nitrofuran Mac (Macrobid 100 Mg Capsule) 100 Mg Capsule, 100 MG PO BID Prescribed by: ELISABET MOYER on 08/02/14 1113 Phenazopyridine Hcl (Pyridium) 200 Mg Tablet, 1 EACH PO TID PRN Prescribed by: ELISABET MOYER on 08/02/14 1236 Review of Systems Review of Systems Constitutional: no symptoms reported; No chills, No diaphoresis, No dizziness, No fever, No malaise, No weakness EENTM: See HPI Respiratory: No Symptoms Reported; Denies Cough, Denies Shortness of Air Cardiovascular: See HPI, Chest Pain; Denies Edema; Irregular Heart Rate; Denies Lightheadedness; Palpitations; Denies Syncope Gastrointestinal: No Symptoms Reported; Denies Abdominal Pain, Denies Nausea, Denies Vomiting Genitourinary: No Symptoms Reported Musculoskeletal: no symptoms reported; No back pain Skin: no symptoms reported Psychiatric/Neurological: No Symptoms Reported Endocrine: No Symptoms Reported Hematologic/Lymphatic: No Symptoms Reported Past Gddhgmu-Zhlacz-Lwrwer Hx Patient Social History Tobacco Use?: No Substance use?: No Alcohol Use?: No Pt feels they are or have been: No Immunizations Up To Date Tetanus Booster (TDap): Unknown First/Initial COVID19 Vaccinat: UNK Second COVID19 Vaccination Stevenson: UNK Third COVID19 Vaccination Date: UNK Seasonal Allergies Seasonal Allergies: No Past Medical History Surgery/Hospitalization HX: HX OF A-FIB Surgeries: Yes (PARTIAL L HIP REPLACEMENT; L WRIST FX; LITHOTRIPSY/URETERAL STENTS 07/2014) Orthopedic, Renal Respiratory: No Cardiac: Yes (AFIB WITH HIP FX AND WITH FLU-SELF CONVERTED BOTH TIMES ) Atrial Fibrillation Neurological: No Genitourinary: Yes (S/P LITHOTRIPSY/URETERAL STENT 07/2014) Kidney Stones Gastrointestinal: No Musculoskeletal: Yes (HIP FRACTURE; WRIST FRACTURE) Fractures Endocrine: No HEENT: Yes Glaucoma Loss of Vision: Denies Hearing Impairment: Denies Cancer: No Psychosocial: No Integumentary: No Blood Disorders: No Family Medical History No Pertinent Family Hx Physical Exam Vital Signs Vital Signs - First Documented 02/15/22 00:38 Temp 36.8 Pulse 156 Resp 16 B/P (MAP) 145/83 (103) Pulse Ox 99 O2 Delivery Room Air Capillary Refill : Less Than 3 Seconds Height, Weight, BMI Height: 5'7.50" Weight: 145lbs. 8.0oz. [id number]; 21.00 BMI Method:Estimated General Appearance: No Apparent Distress, WD/WN, Anxious (MILDLY ) Neck: Full Range of Motion, Normal Inspection, Non Tender, Supple; No JVD Respiratory: Normal Breath Sounds, No Accessory Muscle Use, No Respiratory Distress Cardiovascular: No Edema, No JVD, No Murmur, Normal Peripheral Pulses, Tachycardia (160'S) Gastrointestinal: Non Tender, Soft Extremity: Normal Inspection, No Calf Tenderness, No Pedal Edema Neurologic/Psychiatric: Alert, Oriented x3, No Motor/Sensory Deficits, batch plant operator II- XII Norm as Tested Skin: Normal Color, Warm/Dry Focused Exam Sepsis Stage: Sepsis Possible Source: Unknown Lactate Level 02/15/22 02:35: Lactic Acid Level 0.78 Time of Focused Exam: 02:01 Respiratory: Normal Breath Sounds, No Accessory Muscle Use, No Respiratory Distress Cardiovascular: Regular Rate, Rhythm, No Edema, No JVD, No Murmur, Normal Peripheral Pulses Capillary Refill: Less Than 3 Seconds Skin: normal color, warm/dry Lactic Acid Level Laboratory Tests Test 02/15/22 02:35 Lactic Acid Level 0.78 MMOL/L (0.50-2.00) Within 3hrs of presentation: Admin fluids, Blood cultures prior to ABX's, Focus exam, Lactate level Progress/Results/Core Measures Results/Orders Lab Results Laboratory Tests Test 02/15/22 00:50 02/15/22 02:10 02/15/22 02:20 02/15/22 02:35 Range/Units White Blood Count 23.9 H 4.3-11.0 10^3/uL Red Blood Count 4.53 3.80-5.11 10^6/uL Hemoglobin 14.1 11.5-16.0 g/dL Hematocrit 44 35-52 % Mean Corpuscular Volume 97 80-99 fL Mean Corpuscular Hemoglobin 31 25-34 pg Mean Corpuscular Hemoglobin Concent 32 32-36 g/dL Red Cell Distribution Width 13.4 10.0-14.5 % Platelet Count 204 130-400 10^3/uL Mean Platelet Volume 9.5 9.0-12.2 fL Immature Granulocyte % (Auto) 0 % Neutrophils (%) (Auto) 15 L 42-75 % Lymphocytes (%) (Auto) 79 H 12-44 % Monocytes (%) (Auto) 4 0-12 % Eosinophils (%) (Auto) 2 0-10 % Basophils (%) (Auto) 1 0-10 % Neutrophils # (Auto) 3.5 1.8-7.8 10^3/uL Lymphocytes # (Auto) 18.8 H 1.0-4.0 10^3/uL Monocytes # (Auto) 0.9 0.0-1.0 10^3/uL Eosinophils # (Auto) 0.5 H 0.0-0.3 10^3/uL Basophils # (Auto) 0.1 0.0-0.1 10^3/uL Immature Granulocyte # (Auto) 0.1 0.0-0.1 10^3/uL Neutrophils % (Manual) 18 % Lymphocytes % (Manual) 70 % Monocytes % (Manual) 5 % Eosinophils % (Manual) 3 % Atypical Lymphocytes 4 % Blood Morphology Comment NORMAL Prothrombin Time 12.9 12.2-14.7 SEC INR Comment 0.9 0.8-1.4 Activated Partial Thromboplast Time 27 24-35 SEC D-Dimer 0.54 H 0.00-0.49 UG/ML Sodium Level 143 135-145 MMOL/L Potassium Level 3.6 3.6-5.0 MMOL/L Chloride Level 109 H 98-107 MMOL/L Carbon Dioxide Level 20 L 21-32 MMOL/L Anion Gap 14 5-14 MMOL/L Blood Urea Nitrogen 27 H 7-18 MG/DL Creatinine 0.78 0.60-1.30 MG/DL Estimat Glomerular Filtration Rate 76 BUN/Creatinine Ratio 35 Glucose Level 156 H 70-105 MG/DL Calcium Level 9.6 8.5-10.1 MG/DL Corrected Calcium 9.3 8.5-10.1 MG/DL Magnesium Level 2.0 1.6-2.4 MG/DL Total Bilirubin 0.4 0.1-1.0 MG/DL Aspartate Amino Transf (AST/SGOT) 50 H 5-34 U/L Alanine Aminotransferase (ALT/SGPT) 57 H 0-55 U/L Alkaline Phosphatase 211 H 40-136 U/L Total Creatine Kinase 122 29-168 U/L Creatine Kinase MB 3.9 <6.6 NG/ML Myoglobin 72.0 10.0-92.0 NG/ML Troponin I < 0.028 <0.028 NG/ML B-Type Natriuretic Peptide 40.5 <100.0 PG/ML Total Protein 7.2 6.4-8.2 GM/DL Albumin 4.4 3.2-4.5 GM/DL Amylase Level 67 25-125 U/L Lipase 54 8-78 U/L TSH Costilla Testing 1.84 0.35-4.94 UIU/ML Influenza Type A (RT-PCR) Not Detected Not Detecte Influenza Type B (RT-PCR) Not Detected Not Detecte SARS-CoV-2 RNA (RT-PCR) Not Detected Not Detecte Urine Color YELLOW Urine Clarity CLEAR Urine pH 6.0 5-9 Urine Specific Williams <=1.005 1.016-1.022 Urine Protein NEGATIVE NEGATIVE Urine Glucose (UA) NEGATIVE NEGATIVE Urine Ketones NEGATIVE NEGATIVE Urine Nitrite NEGATIVE NEGATIVE Urine Bilirubin NEGATIVE NEGATIVE Urine Urobilinogen 0.2 < = 1.0 MG/DL Urine Leukocyte Esterase NEGATIVE NEGATIVE Urine RBC (Auto) 1+ H NEGATIVE Urine RBC RARE /HPF Urine WBC 0-2 /HPF Urine Crystals NONE /LPF Urine Bacteria NEGATIVE /HPF Urine Casts NONE /LPF Urine Mucus NEGATIVE /LPF Urine Culture Indicated NO Lactic Acid Level 0.78 0.50-2.00 MMOL/L Test 02/15/22 05:10 Range/Units My Orders Orders - NEFTALI BOONE DO Cbc With Automated Diff (02/15/22 00:39) Magnesium (02/15/22 00:39) Chest 1 View, Ap/Pa Only (02/15/22 00:39) Ekg Tracing (02/15/22 00:39) Comprehensive Metabolic Panel (02/15/22 00:39) Myoglobin Serum (02/15/22 00:39) Protime With Inr (02/15/22 00:39) Partial Thromboplastin Time (02/15/22 00:39) O2 (02/15/22 00:39) Monitor-Rhythm Ecg Trace Only (02/15/22 00:39) Ed Iv/Invasive Line Start (02/15/22 00:39) Creatine Kinase (02/15/22 00:39) Creatine Kinase Mb (02/15/22:39) Lipase (02/15/22 00:39) Amylase (02/15/22 00:39) Bnp [place] (02/15/22 00:39) Fibrin Degradation Products (02/15/22 00:39) Troponin I Rhiannon (02/15/22 00:39) Nitroglycerin 0.4 Mg Btl 25's (Nitrostat (02/15/22 00:45) Aspirin Chewable Tablet (Baby Aspirin Ch (02/15/22 00:45) Thyroid Analyzer (02/15/22 00:48) Enoxaparin Injection (Lovenox Injection) (02/15/22 01:00) Diltiazem Injection (Cardizem Injection) (02/15/22 01:00) Diltiazem Drip Pre-Mix (Cardizem Drip Pr (02/15/22 01:00) Ekg Tracing (02/15/22 01:05) Manual Differential (02/15/22 00:50) Amylase (02/15/22 02:08) Lactic Acid Analyzer (02/15/22 02:08) Lipase (02/15/22 02:08) Procalcitonin (Pct) (02/15/22 02:08) Ua Culture If Indicated (02/15/22 02:08) Blood Culture (02/15/22 02:08) Covid 19 Inhouse Test (02/15/22 02:08) Influenza A And B By Pcr (02/15/22 02:08) Isolation Central Supply Req (02/15/22 02:08) Ed Iv/Invasive Line Start (02/15/22 02:08) Ns Iv 1000 Ml (Sodium Chloride 0.9%) (02/15/22 02:15) Hs C Reactive Protein (02/15/22 02:12) Fibrin Degradation Products (02/15/22 02:12) Cefepime Injection (Maxipime Injection) (02/15/22 03:00) Ct Angio Chest W (02/15/22 02:52) Iohexol Injection (Omnipaque 350 Mg/Ml 1 (02/15/22 03:30) Received Contrast (Hold Metformin- Contr (02/15/22 03:30) Ns (Ivpb) (Sodium Chloride 0.9% Ivpb Bag (02/15/22 03:30) Medications Given in ED Current Medications Medications Dose Ordered Sig/Juan F Route Start Time Stop Time Status Last Admin Dose Admin Aspirin 324 mg ONCE ONCE PO 02/15/22 00:45 02/15/22 00:46 DC 02/15/22 01:00 324 MG Cefepime HCl 1000 mg/Sodium Chloride 50 ml @ 100 mls/hr ONCE ONCE IV 02/15/22 03:00 02/15/22 03:29 DC 02/15/22 03:27 100 MLS/HR Enoxaparin Sodium 70 mg ONCE ONCE SC 02/15/22 01:00 02/15/22 01:01 DC 02/15/22 01:17 70 MG Iohexol 100 ml ONCE ONCE IV 02/15/22 03:30 02/15/22 03:40 DC 02/15/22 03:29 61 ML Sodium Chloride 100 ml ONCE ONCE IV 02/15/22 03:30 02/15/22 03:40 DC 02/15/22 03:29 70 ML Vital Signs/I&O 02/15/22 00:38 Temp 36.8 Pulse 156 Resp 16 B/P (MAP) 145/83 (103) Pulse Ox 99 O2 Delivery Room Air Blood Pressure Mean: 103 Progress Progress Note : Progress Note PT IN ATRIAL FIB/FLUTTER WITH RVR , RATE OF 160'S ON ARRIVAL. SHE STATES SHE FEELS FINE AND DOES NOT HAVE SENSATION OF AN IRREGULAR HEART BEAT. PT DENIES ANY CHEST DISCOMFORT OR SHORTNESS OF BREATH. 0057--PT SELF CONVERTED TO NSR BEFORE SHE WAS GIVEN ANY MEDICATION OF ANY KIND. PT IS NOW WANTING TO GO HOME. STATES SHE FEELS FINE. DID GIVE ASPIRIN AND LOVENOX 0210--ON RECEIVING CBC RESULTS, WITH ELEVATED WBC, SEPSIS PROTOCOL INITIATED, AND ADDITIONAL LAB WORK AND IV FLUIDS ORDERED. PT IS SYMPTOM FREE AT THIS TIME AND CONTINUES TO REPEAT THAT SHE IS READY TO GO HOME AND SHE FEELS FINE. NO SYMPTOMS FOR REMAINDER OF ER STAY Initial ECG Impression Date: Feb 15, 2022 Initial ECG Impression Time: 00:44 Initial ECG Rhythm: A Fib/Flutter Initial ECG Impression: Atrial Fibrillation w/RVR EKG : EKG Time: 00:57 Rate: 109 Rhythm: Normal Sinus Diagnostic Imaging Comments CXR--NO ACUTE PROCESS, PENDING RADIOLOGIST REVIEW Reviewed: Reviewed by Me Departure Impression Primary Impression: Atrial fibrillation with rapid ventricular response Additional Impression: Leukocytosis Disposition: HOME, SELF-CARE Condition: Improved Departure-Patient Inst. Decision time for Depature: 05:34 Referrals: NO,LOCAL PHYSICIAN (PCP/Family) Primary Care Physician Patient Instructions: Atrial Fibrillation and Atrial Flutter ED, White Blood Cell Count Differential Test Add. Discharge Instructions: HOME, REST TAKE 81 MG ASPIRIN DAILY FOLLOW UP WITH DR. JACKMAN NEXT WEEK FOR FURTHER CARE AND RECHECK OF WHITE BLOOD CELL COUNT FOLLOW UP WITH DR. DE LA ROSA, SURGICAL TECHNOLOGIST, NEXT WEEK FOR FURTHER CARE CALL LATER THIS MORNING TO SCHEDULE APPOINTMENTS RETURN TO ER IF SYMPTOMS WORSEN All discharge instructions reviewed with patient and/or family. Voiced understanding. Scripts Cefdinir (Cefdinir) 300 Mg Capsule 300 MG PO BID, #20 CAP Prov: NEFTALI BOONE DO 02/15/22 NEFTALI BOONE DO Feb 15, 2022 01:52
[2022-02-15] MEDS ORDERED: NS IV 1000 ML 1,000 ML IV SCH (02:15)
[2022-02-15 02:18] LABS: TSH (THYROID ANALYZER) 1.84 UIU/ML (0.35-4.94)
[2022-02-15 02:31] LABS: BILIRUBIN,URINE NEGATIVE (NEGATIVE); CLARITY,URINE CLEAR; COLOR,URINE YELLOW; GLUCOSE, URINE (UA) NEGATIVE (NEGATIVE); KETONES,URINE NEGATIVE (NEGATIVE); LEUKOCYTE ESTERASE ,URINE NEGATIVE (NEGATIVE); NITRITE,URINE NEGATIVE (NEGATIVE); PROTEIN,URINE NEGATIVE (NEGATIVE)
[2022-02-15 02:42] LABS: BACTERIA,URINE NEGATIVE /HPF; RBC,URINE RARE /HPF; WBC,URINE 0-2 /HPF
[2022-02-15] MEDS ORDERED: CEFEPIME INJECTION 1,000 MG in NS (IVPB) 50 ML IV ONE (03:00)
[2022-02-15] MEDS ORDERED: HOLD METFORMIN - RECEIVED CONTRAST 20 ML VIAL IV SCH (03:30)
[2022-02-15] MEDS ORDERED: IOHEXOL 350 MG/ML 100 ML (OMNIPAQUE 350) VIAL IV ONE (03:30)
[2022-02-15] MEDS ORDERED: NS 100 ML (IVPB) BAG IV ONE (03:30)
[2022-02-15] MEDS ORDERED: CEFD300C3 PO (05:37)
--- NOTE | 2022-02-15 05:39 | Diagnostic Imaging Report ---
PROCEDURE: CT angiography of the chest with contrast. TECHNIQUE: Multiple contiguous axial images were obtained through the chest after uneventful bolus administration of intravenous contrast. 3D reconstructed CTA MIP acquisitions were also performed. Auto Exposure Controls were utilized during the CT exam to meet ALARA standards for radiation dose reduction. INDICATION: 81-year-old female with severe chest pain, shortness of breath, assess for pulmonary embolism. COMPARISONS: None FINDINGS: There is no axillary adenopathy. There is also no hilar or mediastinal adenopathy. Cardiac contour is normal. Thoracic aortic contour is also normal with no evidence of aneurysm or dissection. The pulmonary outflow tract as well as the right and left pulmonary arteries, their segmental and subsegmental branches are patent with no evidence of intraluminal thrombus to suggest a pulmonary embolism. Lungs are clear with no consolidation, effusion or pneumothorax. Some background chronic parenchymal changes. Limited assessment of the abdomen shows hepatosplenomegaly. Gallbladder is moderately prominent. There is a small hiatal hernia. Pancreas shows sharp margins. Visualized kidneys show symmetrical perfusion of contrast. IMPRESSION: 1. Senescent chest. There is no CT angiographic evidence for aortic aneurysm, dissection or pulmonary embolism. 2. Hepatosplenomegaly. 3. Moderate distention gallbladder but no secondary signs of cholelithiasis or acute cholecystitis. 4. Small hiatal hernia. Agree with [facility] report. Dictated by: Dictated on workstation # [id number]
--- NOTE | 2022-02-15 08:00 | Diagnostic Imaging Report ---
INDICATION: Chest pain COMPARISON: 05/11/2016 TECHNIQUE: Single radiograph of the chest dated 02/15/2022. FINDINGS: The cardiac silhouette is within normal limits in size. No significant pulmonary vascular congestion. The lungs are mildly hyperinflated, though clear of focal pulmonary opacity. No significant pleural effusion. No pneumothorax. No acute osseous abnormality. IMPRESSION: Mild background pulmonary hyperinflation without superimposed acute cardiopulmonary abnormality. Dictated by: Dictated on workstation # [id number]
== END 2022-02-15 05:48 | disposition home or self-care (01) ==
LOC: EDUNIT# 00:32 → ER 00:33
DX: I48.20 Chronic atrial fibrillation, unspecified (principal); A41.9 Sepsis, unspecified organism; D72.829 Elevated white blood cell count, unspecified; Z20.822 Contact with and (suspected) exposure to COVID-19; Z79.01 Long term (current) use of anticoagulants
CPT/HCPCS: 36415; 71045; 71275; 80053; 81000; 82150; 82550; 82553; 83605; 83690; 83735; 83874; 83880; 84443; 84484; 85007; 85027; 85379; 85610; 85730; 87040; 87077; 87186; 87636; 93005; 93041